=== PATIENT | female | born 1980 | race Two or more races ===

== ENCOUNTER 2020-12-10 22:35 | Emergency (ER) | payer MEDICARE, MEDICAID ==
[~2020-12-10] VITALS: Ht 167.6 cm; Wt 55.8 kg
[~2020-12-10 22:35] MED LIST: LEVO137T24 PO; PANT-47 PO; SUCR1TAB PO; VENL150C2 PO
[2020-12-10 23:02] VITALS: BP 108/66
== END 2020-12-11 02:09 | disposition home or self-care (01) ==
LOC: ER 22:36
DX: R09.1 Pleurisy (principal); R10.12 Left upper quadrant pain; N18.9 Chronic kidney disease, unspecified; E03.9 Hypothyroidism, unspecified; Z86.2 Personal history of diseases of the blood and blood-forming organs and certain disorders involving the immune mechanism; Z90.710 Acquired absence of both cervix and uterus; Z88.6 Allergy status to analgesic agent; Z88.8 Allergy status to other drugs, medicaments and biological substances; Z79.899 Other long term (current) drug therapy
CPT/HCPCS: 71250; 74176; 99284

== ENCOUNTER 2021-09-25 14:40 | Emergency (ER) | payer MEDICARE, MEDICAID ==
[~2021-09-25] VITALS: Ht 165.1 cm; Wt 57.8 kg
[2021-09-25 14:58] VITALS: BP 128/71
== END 2021-09-26 00:28 | disposition left against medical advice (07) ==
LOC: ER 14:40
DX: M54.50 Low back pain, unspecified (principal); R53.1 Weakness; N18.9 Chronic kidney disease, unspecified; E03.9 Hypothyroidism, unspecified; F41.9 Anxiety disorder, unspecified; F31.9 Bipolar disorder, unspecified; Z86.2 Personal history of diseases of the blood and blood-forming organs and certain disorders involving the immune mechanism; Z90.710 Acquired absence of both cervix and uterus; Z98.890 Other specified postprocedural states; Z88.5 Allergy status to narcotic agent; Z79.899 Other long term (current) drug therapy; Z53.21 Procedure and treatment not carried out due to patient leaving prior to being seen by health care provider

== ENCOUNTER 2021-11-10 08:15 | Emergency (ER) | payer MEDICARE, MEDICAID ==
[~2021-11-10] VITALS: Ht 165.1 cm; Wt 61.8 kg
--- NOTE | 2021-11-10 08:27 | NUR ---
spoke with edmd child regarding findings in triage
[2021-11-10] MEDS ORDERED: sterile talc powder 5 GM, BUPIVAcaine 0.5% inj/PF 37.5 MG in normal saline 50ml IV soln... IPL ONE (08:30)
[2021-11-10] MEDS ORDERED: BUPIVAcaine 0.5% inj/PF 30 ml vial IJ ONE (08:35)
[2021-11-10] MEDS ORDERED: fentaNYL/PF 50MCG/1 ML 2ML syringe IV ONE ×3 (09:20→15:35)
[2021-11-10] MEDS ORDERED: ketorolac trometh. 30mg/ml inj. IV ONE ×2 (09:20)
[2021-11-10] MEDS ORDERED: LORazepam 2 mg/ml vial IV ONE (09:55)
[2021-11-10 09:59] LABS: BASOPHILS % (AUTO) 0.7 % (0-1); EOSINOPHILS # (AUTO) 0.1 X10'3 (0-0.9); EOSINOPHILS % (AUTO) 1.1 % (0-6); HEMATOCRIT 39.3 % (35.0-45.0); HEMOGLOBIN 13.3 g/dl (12.0-16.0); LYMPHOCYTES % (AUTO) 15.6 % (21-51); MEAN CORPUSCULAR HEMOGLOBIN 31.9 PG (27.0-31.0); MEAN CORPUSCULAR VOLUME 93.8 FL (78-98); MEAN PLATELET VOLUME 8.6 FL (7.4-10.4); MONOCYTES # (AUTO) 0.3 X10'3 (0-0.9); MONOCYTES % (AUTO) 4.9 % (2-12); NEUTROPHILS # (AUTO) 4.9 X10'3 (1.8-7.7); NEUTROPHILS % (AUTO) 77.7 % (42-75); PLATELET COUNT 250 X10'3 (140-440); RED BLOOD COUNT 4.19 X10'6 (4.20-5.60); RED CELL DISTRIBUTION WIDTH 12.3 % (11.5-14.5); WHITE BLOOD COUNT 6.3 X10'3 (4.5-11.0)
[2021-11-10 10:11] LABS: ALBUMIN 3.6 G/DL (3.4-5.0); ANION GAP 9 (8-16); BLOOD UREA NITROGEN 20 MG/DL (7-18); BUN/CREATININE RATIO 19.6 (6.6-38.0); CALCIUM 8.6 MG/DL (8.5-10.1); CHLORIDE 107 MMOL/L (99-107); CREATININE 1.02 MG/DL (0.40-0.90); GLUCOSE 98 MG/DL (70-104); POTASSIUM 4.1 MMOL/L (3.5-5.1); SODIUM 142 MMOL/L (135-145); TOTAL CARBON DIOXIDE 26.1 MMOL/L (24-32); eGFR 60 ML/MIN
[2021-11-10] MEDS ORDERED: dexamethasone sod phosphate 10mg/ml inj IV STA (15:33)
[2021-11-10] MEDS ORDERED: ondansetron/PF 4mg/2ml inj IV ONE (15:35)
[2021-11-10 19:22] VITALS: BP 108/63
== END 2021-11-10 21:29 | disposition short-term general hospital (02) ==
LOC: ER 08:16
DX: G83.4 Cauda equina syndrome (principal); Z20.822 Contact with and (suspected) exposure to COVID-19; M51.27 Other intervertebral disc displacement, lumbosacral region; F41.9 Anxiety disorder, unspecified; F31.9 Bipolar disorder, unspecified; N18.9 Chronic kidney disease, unspecified; E03.9 Hypothyroidism, unspecified; Z86.2 Personal history of diseases of the blood and blood-forming organs and certain disorders involving the immune mechanism; Z90.710 Acquired absence of both cervix and uterus; Z98.890 Other specified postprocedural states; Z88.5 Allergy status to narcotic agent; Z79.899 Other long term (current) drug therapy
CPT/HCPCS: 36415; 72148; 80048; 85025; 87635; 96374; 96375; 96376; 99291; 99292; C9803; J1100; J1885; J2060; J2405; J3010

== ENCOUNTER 2022-04-13 13:28 | Emergency (ER) | payer MEDICARE, MEDICAID ==
[~2022-04-13] VITALS: Ht 167.6 cm; Wt 60.5 kg
[~2022-04-13 13:28] MED LIST changes: -VENL150C2 PO; +VENL150C4 PO
[2022-04-13] MEDS ORDERED: normal saline 1000ML IV soln IVB ONE (15:00)
[2022-04-13 15:34] LABS: BASOPHILS % (AUTO) 0.2 % (0-1); EOSINOPHILS % (AUTO) 0 % (0-6); HEMATOCRIT 37.3 % (35.0-45.0); HEMOGLOBIN 12.7 g/dl (12.0-16.0); LYMPHOCYTES # (AUTO) 0.7 X10'3 (1.1-4.8); LYMPHOCYTES % (AUTO) 7.8 % (21-51); MEAN CORPUSCULAR HEMOGLOBIN 31.2 PG (27.0-31.0); MEAN CORPUSCULAR VOLUME 91.7 FL (78-98); MONOCYTES # (AUTO) 0.5 X10'3 (0-0.9); MONOCYTES % (AUTO) 5.5 % (2-12); NEUTROPHILS # (AUTO) 8.3 X10'3 (1.8-7.7); NEUTROPHILS % (AUTO) 86.5 % (42-75); PLATELET COUNT 221 X10'3 (140-440); RED BLOOD COUNT 4.07 X10'6 (4.20-5.60); RED CELL DISTRIBUTION WIDTH 12.5 % (11.5-14.5); WHITE BLOOD COUNT 9.6 X10'3 (4.5-11.0)
[2022-04-13] MEDS ORDERED: ondansetron 4mg rapidly disintigrating tab PO ONE (15:40)
[2022-04-13 15:50] LABS: ALANINE AMINOTRANSFERASE 13 U/L (12-78); ALBUMIN/GLOBULIN RATIO 1.3 (1.1-1.5); ALKALINE PHOSPHATASE 47 IU/L (46-116); ANION GAP 10 (8-16); ASPARTATE AMINO TRANSFERASE 17 U/L (10-37); BILIRUBIN,TOTAL 0.7 MG/DL (0.1-1.0); BLOOD UREA NITROGEN 17 MG/DL (7-18); BUN/CREATININE RATIO 17.5 (6.6-38.0); CALCIUM 8.3 MG/DL (8.5-10.1); CHLORIDE 111 MMOL/L (99-107); CREATININE 0.97 MG/DL (0.40-0.90); GLUCOSE 87 MG/DL (70-104); MAGNESIUM 1.7 MG/DL (1.5-2.4); POTASSIUM 3.2 MMOL/L (3.5-5.1); SODIUM 145 MMOL/L (135-145); TOTAL CARBON DIOXIDE 23.9 MMOL/L (24-32); eGFR 63 ML/MIN
[2022-04-13] MEDS ORDERED: magnesium 2GM in 50ml NS 50 ML IV ONE (16:20)
[2022-04-13] MEDS ORDERED: potassium Cl 20 mEq SR tablet PO ONE (16:20)
[2022-04-13 17:00] VITALS: BP 111/69
[2022-04-13] MEDS ORDERED: ibuprofen tablet 400 MG TABLET PO ONE (17:00)
[2022-04-13] MEDS ORDERED: metoclopramide 10mg tablet PO ONE (18:00)
== END 2022-04-13 19:12 | disposition home or self-care (01) ==
LOC: ER 13:28
DX: T67.5XXA Heat exhaustion, unspecified, initial encounter (principal); N18.9 Chronic kidney disease, unspecified; E03.9 Hypothyroidism, unspecified; F31.9 Bipolar disorder, unspecified; D64.9 Anemia, unspecified; Z88.5 Allergy status to narcotic agent; Z79.899 Other long term (current) drug therapy; X58.XXXA Exposure to other specified factors, initial encounter; Y93.89 Activity, other specified; Y92.89 Other specified places as the place of occurrence of the external cause; Y99.8 Other external cause status
CPT/HCPCS: 36415; 80053; 83735; 84484; 85025; 96361; 96374; 99284; J3475; J7030

== ENCOUNTER 2024-04-19 15:26 | Emergency (ER) | payer MEDICARE, MEDICAID ==
[~2024-04-19] VITALS: Ht 167.6 cm; Wt 55.9 kg
[~2024-04-19 15:26] MED LIST changes: -VENL150C4 PO; +VENL150C5 PO
[2024-04-19] MEDS: ondansetron/PF 4mg/2ml inj IV ONE (16:20)
[2024-04-19] MEDS: ketorolac tromethamine 15mg/ml inj. IV ONE (16:20)
[2024-04-19 16:29] LABS: BASOPHILS % (AUTO) 0.8 % (0-1); EOSINOPHILS # (AUTO) 0.1 X10'3 (0-0.9); EOSINOPHILS % (AUTO) 0.9 % (0-6); HEMATOCRIT 42.4 % (35.0-45.0); HEMOGLOBIN 14.5 g/dl (12.0-16.0); LYMPHOCYTES # (AUTO) 1.4 X10'3 (1.1-4.8); LYMPHOCYTES % (AUTO) 23.7 % (21-51); MEAN CORPUSCULAR HEMOGLOBIN 31.6 PG (27.0-31.0); MEAN CORPUSCULAR HGB CONC 34.3 g/dL (33.0-36.5); MEAN CORPUSCULAR VOLUME 92.3 FL (78-98); MEAN PLATELET VOLUME 9.7 FL (7.4-10.4); MONOCYTES # (AUTO) 0.4 X10'3 (0-0.9); MONOCYTES % (AUTO) 6.5 % (2-12); NEUTROPHILS # (AUTO) 4.1 X10'3 (1.8-7.7); NEUTROPHILS % (AUTO) 68.1 % (42-75); PLATELET COUNT 252 X10'3 (140-440); RED BLOOD COUNT 4.59 X10'6 (4.20-5.60); RED CELL DISTRIBUTION WIDTH 12.2 % (11.5-14.5)
[2024-04-19] MEDS ORDERED: iohexol 300mg/ml 100ml inj. ONE (16:34)
[2024-04-19 16:36] LABS: ALANINE AMINOTRANSFERASE 26 U/L (12-78); ALBUMIN 4.1 G/DL (3.4-5.0); ALBUMIN/GLOBULIN RATIO 1.1 (1.1-1.5); ALKALINE PHOSPHATASE 62 IU/L (46-116); AMYLASE 79 U/L (25-115); ANION GAP 8 (8-16); ASPARTATE AMINO TRANSFERASE 17 U/L (10-37); BILIRUBIN,TOTAL 0.5 MG/DL (0.1-1.0); BLOOD UREA NITROGEN 15 MG/DL (7-18); BUN/CREATININE RATIO 16.5 (10.0-20.0); CHLORIDE 105 MMOL/L (99-107); CREATININE 0.91 MG/DL (0.40-0.90); GLUCOSE 104 MG/DL (70-104); LIPASE 76 U/L (16-77); POTASSIUM 3.6 MMOL/L (3.5-5.1); SODIUM 141 MMOL/L (135-145); TOTAL CARBON DIOXIDE 28.2 MMOL/L (24-32); TOTAL PROTEIN 7.8 G/DL (6.4-8.2); eCRCL 70 ML/MIN; eGFR 67 ML/MIN
[2024-04-19] MEDS: fentaNYL/PF 50MCG/1 ML 2ML syringe IV ONE (17:15)
[2024-04-19] MEDS: HYDROmorphone 1 mg/ml syringe IV ONE (18:42)
[2024-04-19 19:11] LABS: URINE HCG NEGATIVE (NEG)
[2024-04-19 19:14] LABS: BILIRUBIN,URINE NEGATIVE (Neg); CLARITY,URINE CLOUDY (Clear); COLOR,URINE YELLOW (Yellow); GLUCOSE, URINE NEGATIVE (Neg); KETONES,URINE NEGATIVE (Neg); LEUKOCYTE ESTERASE ,URINE NEGATIVE (Neg); NITRITES, URINE NEGATIVE (Neg); OCCULT BLOOD,URINE NEGATIVE (Neg); PROTEIN,URINE NEGATIVE (Neg); UROBILINOGEN,URINE 0.2 E.U/dL (0.2-1.0)
[2024-04-19 19:16] LABS: UA COLLECTION TYPE CLN CATCH MIDSTREAM
[2024-04-19 19:26] LABS: AMORPHOUS PHOSPHATES 3+; SQUAMOUS EPITHELIAL CELL,UR MODERATE /LPF (FEW)
[2024-04-19 19:27] LABS: BACTERIA,URINE 3+ /HPF (Neg); RBC,URINE 0-2 /HPF (0-2)
[2024-04-19 19:28] LABS: WBC,URINE 0-4 /HPF (0-4)
[2024-04-19] MEDS: diphenhydrAMINE 50 mg/ml inj IM ONE (19:28)
[2024-04-19 19:29] LABS: URINE AMPHETAMINE SCREEN NEGATIVE (Neg); URINE BARBITUATE SCREEN NEGATIVE (Neg); URINE BENZODIAZEPINES SCREEN NEGATIVE (Neg); URINE CANNABINOID SCREEN NEGATIVE (Neg); URINE COCAINE SCREEN NEGATIVE (Neg); URINE METHADONE SCREEN NEGATIVE (Neg); URINE OPIATE SCREEN NEGATIVE (Neg); URINE PHENCYCLIDINE SCREEN NEGATIVE (Neg)
[2024-04-19] MEDS: proCHLORperazine 10 MG/2 ml inj IV ONE (19:44)
[2024-04-19] MEDS: acetaminophen 1,000mg/100ml IV 100 ML IV ONE (19:45)
[2024-04-19] MEDS ORDERED: ONDA-245 PO (19:56)
[2024-04-19] MEDS ORDERED: HYDR-3965 PO (19:56)
[2024-04-19 20:19] VITALS: BP 149/82; PULSE 54; RESP 16; TEMP 98.6; O2SAT 98
== END 2024-04-19 20:20 | disposition home or self-care (01) ==
LOC: ER 15:26
DX: N83.201 Unspecified ovarian cyst, right side (principal); N18.9 Chronic kidney disease, unspecified; E03.9 Hypothyroidism, unspecified; F41.9 Anxiety disorder, unspecified; F31.9 Bipolar disorder, unspecified; R10.2 Pelvic and perineal pain; Z88.5 Allergy status to narcotic agent; Z79.899 Other long term (current) drug therapy; Z79.2 Long term (current) use of antibiotics; Z90.710 Acquired absence of both cervix and uterus
CPT/HCPCS: 36415; 74177; 76856; 80053; 80305; 81001; 81025; 82150; 83605; 83690; 84145; 85025; 87040; 93976; 96372; 96374; 96375; 99285; A4353; J0131; J0780; J1170; J1200; J1885; J2405; J3010; J7030; Q9967

== ENCOUNTER 2024-12-20 16:28 | Emergency (ER) | payer MEDICARE, MEDICAID ==
[~2024-12-20] VITALS: Ht 167.6 cm; Wt 59.0 kg
[~2024-12-20 16:28] MED LIST changes: +ONDA-245 PO
[2024-12-20 17:38] LABS: BASOPHILS # (AUTO) 0.1 X10'3 (0-0.2); EOSINOPHILS # (AUTO) 0.1 X10'3 (0-0.9); HEMATOCRIT 39.1 % (35.0-45.0); HEMOGLOBIN 13.5 g/dl (12.0-16.0); LYMPHOCYTES # (AUTO) 1.7 X10'3 (1.1-4.8); MEAN CORPUSCULAR HEMOGLOBIN 31.4 PG (27.0-31.0); MEAN CORPUSCULAR HGB CONC 34.6 g/dL (33.0-36.5); MEAN CORPUSCULAR VOLUME 90.5 FL (78-98); MEAN PLATELET VOLUME 8.9 FL (7.4-10.4); MONOCYTES # (AUTO) 0.5 X10'3 (0-0.9); MONOCYTES % (AUTO) 6.7 % (2-12); NEUTROPHILS # (AUTO) 5.5 X10'3 (1.8-7.7); NEUTROPHILS % (AUTO) 69.3 % (42-75); PLATELET COUNT 249 X10'3 (140-440); RED BLOOD COUNT 4.32 X10'6 (4.20-5.60); RED CELL DISTRIBUTION WIDTH 12.6 % (11.5-14.5); WHITE BLOOD COUNT 7.9 X10'3 (4.5-11.0)
[2024-12-20 18:29] LABS: ALANINE AMINOTRANSFERASE 25 U/L (12-78); ALBUMIN 3.9 G/DL (3.4-5.0); ALBUMIN/GLOBULIN RATIO 1.3 (1.1-1.5); ALKALINE PHOSPHATASE 63 IU/L (46-116); ANION GAP 8 (8-16); ASPARTATE AMINO TRANSFERASE 20 U/L (10-37); BILIRUBIN,TOTAL 0.4 MG/DL (0.1-1.0); BLOOD UREA NITROGEN 14 MG/DL (7-18); BUN/CREATININE RATIO 17.7 (10.0-20.0); CALCIUM 8.8 MG/DL (8.5-10.1); CHLORIDE 107 MMOL/L (99-107); CREATININE 0.79 MG/DL (0.40-0.90); GLUCOSE 93 MG/DL (70-104); LIPASE 79 U/L (16-77); POTASSIUM 3.5 MMOL/L (3.5-5.1); SODIUM 143 MMOL/L (135-145); TOTAL CARBON DIOXIDE 27.9 MMOL/L (24-32); TOTAL PROTEIN 6.8 G/DL (6.4-8.2); eCRCL 85 ML/MIN; eGFR 79 ML/MIN
[2024-12-20 20:19] VITALS: BP 111/55; PULSE 67; TEMP 98; O2SAT 100
[2024-12-20 20:39] VITALS: RESP 18
[2024-12-20 20:43] LABS: URINE HCG NEGATIVE (NEG)
[2024-12-20 20:48] LABS: BILIRUBIN,URINE NEGATIVE (Neg); CLARITY,URINE CLEAR (Clear); COLOR,URINE YELLOW (Yellow); GLUCOSE, URINE NEGATIVE (Neg); KETONES,URINE NEGATIVE (Neg); LEUKOCYTE ESTERASE ,URINE NEGATIVE (Neg); NITRITES, URINE NEGATIVE (Neg); OCCULT BLOOD,URINE NEGATIVE (Neg); PROTEIN,URINE NEGATIVE (Neg); UROBILINOGEN,URINE 0.2 E.U/dL (0.2-1.0)
[2024-12-20] MEDS ORDERED: iohexol 300mg/ml 100ml inj. ONE (20:53)
[2024-12-20] MEDS: ondansetron/PF 4mg/2ml inj IV ONE (20:58)
[2024-12-20] MEDS: ketorolac trometh 15mg/ml vial 15 MG/ML ML IV ONE (20:58)
[2024-12-20 21:01] LABS: UA COLLECTION TYPE CLN CATCH MIDSTREAM
[2024-12-20] MEDS ORDERED: DICY10CA88 PO (22:59)
[2024-12-20] MEDS ORDERED: FAMO-129 PO (22:59)
[2024-12-20] MEDS: acetaminophen 325mg tablet PO ONE (23:10)
[2024-12-20] MEDS: famotidine 20mg tablet PO ONE (23:10)
[2024-12-20] MEDS: dicyclomine 10mg/ml 2ml ampule IM ONE (23:11)
== END 2024-12-20 23:20 | disposition home or self-care (01) ==
LOC: ER 16:29
DX: K62.5 Hemorrhage of anus and rectum (principal); D63.1 Anemia in chronic kidney disease; E03.9 Hypothyroidism, unspecified; F31.9 Bipolar disorder, unspecified; N18.9 Chronic kidney disease, unspecified; Z88.0 Allergy status to penicillin; Z88.5 Allergy status to narcotic agent; Z90.710 Acquired absence of both cervix and uterus
CPT/HCPCS: 36415; 74177; 80053; 81003; 81025; 83690; 84145; 85025; 96365; 96366; 96372; 99285; J0500; J1885; J2405; J7030; Q9967